=== PATIENT | male | born 1955 | race Caucasian/White ===

== ENCOUNTER → 2020-10-27 | Outpatient (CLI) | payer MEDICARE | LOC: LAB SHORT 14:02 → PLD 14:02 | DX: L08.9 Local infection of the skin and subcutaneous tissue, unspecified (principal); L57.8 Other skin changes due to chronic exposure to nonionizing radiation; R59.0 Localized enlarged lymph nodes; L81.4 Other melanin hyperpigmentation; D22.62 Melanocytic nevi of left upper limb, including shoulder; D22.5 Melanocytic nevi of trunk; L85.3 Xerosis cutis; D48.5 Neoplasm of uncertain behavior of skin; Z71.89 Other specified counseling | CPT/HCPCS: 87070; 87077; 87147; 87186; 87205 ==

== ENCOUNTER 2021-01-13 13:34 | Inpatient (IN) | payer MEDICARE ==
[~2021-01-13] VITALS: Ht 182.9 cm; Wt 101.7 kg
[2021-01-13 16:03] LABS: BASOPHILS ABSOLUTE AUTO 0.05 K/mm3 (0.00-0.23); BASOPHILS PERCENT AUTO 0 % (0-2); EOSINOPHILS ABSOLUTE AUTO 0.05 K/mm3 (0.00-0.68); EOSINOPHILS PERCENT AUTO 0 % (0-6); Hematocrit 38.6 % (37.0-53.0); Hemoglobin 12.1 g/dL (13.5-17.5); IMMATURE GRAN ABSOLUTE AUTO 0.52 K/mm3 (0.00-0.10); IMMATURE GRAN PERCENT AUTO 3 % (0-1); LYMPHOCYTES ABSOLUTE AUTO 0.55 K/mm3 (0.84-5.20); LYMPHOCYTES PERCENT AUTO 3 % (21-46); MONOCYTES ABSOLUTE AUTO 0.72 K/mm3 (0.16-1.47); MONOCYTES PERCENT AUTO 4 % (4-13); Mean Corpuscular HGB 27.8 pg (26.0-34.0); Mean Corpuscular HGB Conc 31.3 g/dL (31.5-36.5); Mean Corpuscular Volume 89 fL (80-100); Mean Platelet Volume 9.6 fL (9.1-12.4); NEUTROPHILS ABSOLUTE AUTO 15.76 K/mm3 (1.96-9.15); NEUTROPHILS PERCENT AUTO 89 % (41-73); NRBC ABSOLUTE 0.02 K/mm3 (0.00-0.02); NRBC Auto 0.1 /100 WBC (0.0-0.2); Platelet Count 202 K/mm3 (150-400); RDW Coefficient Variation 17.2 % (11.7-14.2); RDW Standard Deviation 55.4 fL (35.1-46.3); Red Blood Cell Count 4.35 M/mm3 (4.30-5.90); White Blood Cell Count 17.65 K/mm3 (4.00-11.30)
[2021-01-13 16:39] LABS: Alanine Aminotransfer (ALT/SGP 55 U/L (12-78); Albumin, Blood 2.3 g/dL (3.4-5.0); Albumin/Globulin Ratio 0.7 (0.8-1.8); Alk Phos 77 U/L (50-136); Anion Gap 5 mmol/L (6-16); Aspartate Aminotrans (AST/SGOT 55 U/L (12-37); Bilirubin, Total 0.8 mg/dL (0.1-1.0); Blood Urea Nitrogen 27 mg/dL (8-24); Bun/Creatinine Ratio 44.1 (12.0-20.0); CO2, Blood 26 mmol/L (21-32); Calcium, Blood 7.7 mg/dL (8.5-10.1); Chloride, Blood 104 mmol/L (98-108); Creatinine, Blood 0.61 mg/dL (0.60-1.20); Globulin, Blood 3.3 g/dL (2.2-4.0); Glomerular Filtration Rate >60 (60-); Glucose, Blood 133 mg/dL (70-99); Potassium, Blood 4.8 mmol/L (3.5-5.5); Sodium, Blood 135 mmol/L (136-145); Total Protein, Blood 5.6 g/dL (6.4-8.2); Troponin I <0.015 ng/mL (0.000-0.040)
[2021-01-13 17:28] LABS: SARS-Cov-2 (COVID-19) PCR, MMC NEGATIVE (NEGATIVE)
[2021-01-13] MEDS ORDERED: MAGNESIUM OXID500 MG PO ×2 (17:43→18:44)
[2021-01-13] MEDS ORDERED: ATOR20 (17:44)
[2021-01-13] MEDS ORDERED: DEXA4 PO (17:45)
[2021-01-13] MEDS ORDERED: LEVSOD75 PO (17:45)
[2021-01-13] MEDS ORDERED: Percocet 5-3251 EACH PO (17:46)
[2021-01-13] MEDS ORDERED: METO10 PO (17:47)
[2021-01-13] MEDS ORDERED: FENT200LOZ TD (17:48)
[2021-01-13] MEDS ORDERED: REGLAN10 M7 PO (18:35)
[2021-01-13] MEDS ORDERED: FENTANYL1 EA19 TOP (18:35)
[2021-01-13] MEDS ORDERED: OXYC5 PO (18:37)
[2021-01-13] MEDS ORDERED: DOCUZEN 8.6-501 EACH PO (18:38)
[2021-01-13] MEDS ORDERED: ATOR20 PO (18:44)
--- NOTE | 2021-01-13 20:48 | NUR ---
ADMIT NOTE HANDOFF RECEIVED FROM EXECUTIVE SECRETARY GREGG. PT ARRIVED TO FLOOR VIA GURMOOKIE. PT ORIENTED TO UNIT. CALL BUTTON WITHIN REACH
--- NOTE | 2021-01-14 03:56 | NUR ---
SHIFT SUMMARY ADMITTED THIS SHIFT FOR LEFT PLEURAL EFFUSION/SOB. DNR CODE. POSSIBLE PNEUMONIA. A CANCER PT, HE MAY HAVE HAD AN ALLERGIC REACTION TO HIS IMMUNOTHERAPY DRUG TX. LACTIC ACID ELEVATED @ 4. LR INFUSING @ 125 ML/HR. HE IS ON XARELTO. I HAVE CALLED THE CONSULT TO DR. HARRIS'S ANSWERING SERVICE. HX: MELANOMA W/METS TO SPINE - STAGE 4. HE WAS PREVIOUSLY ON HOSPICE, BUT WENT BACK TO CANCER TREATMENTS. NEW CT SCAN PERFORMED, RESULTS AVAILABLE. HE DESATURATED THIS SHIFT 85-87% O2 SAT. I DID PUT HIM ON 2 LPM O2 AND INFORM HOSPITALIST TO OBTAIN O2 ORDER.
[2021-01-14 06:15] LABS: Hemoglobin 11.3 g/dL (13.5-17.5); Mean Corpuscular HGB 27.8 pg (26.0-34.0); Mean Corpuscular HGB Conc 31.4 g/dL (31.5-36.5); Mean Corpuscular Volume 89 fL (80-100); Mean Platelet Volume 9.1 fL (9.1-12.4); Platelet Count 185 K/mm3 (150-400); RDW Coefficient Variation 17.3 % (11.7-14.2); RDW Standard Deviation 55.3 fL (35.1-46.3); Red Blood Cell Count 4.07 M/mm3 (4.30-5.90); White Blood Cell Count 19.31 K/mm3 (4.00-11.30)
[2021-01-14 06:37] LABS: Anion Gap 5 mmol/L (6-16); Blood Urea Nitrogen 19 mg/dL (8-24); Bun/Creatinine Ratio 32.4 (12.0-20.0); CO2, Blood 26 mmol/L (21-32); Calcium, Blood 7.2 mg/dL (8.5-10.1); Chloride, Blood 106 mmol/L (98-108); Creatinine, Blood 0.59 mg/dL (0.60-1.20); Glomerular Filtration Rate >60 (60-); Glucose, Blood 98 mg/dL (70-99); Potassium, Blood 4.1 mmol/L (3.5-5.5); Sodium, Blood 137 mmol/L (136-145); Thyroxine (T4) 6.5 ug/dL (4.5-12.1)
--- NOTE | 2021-01-14 13:53 | NUR ---
Spoke with Supply Chain Systems Manager Daniella prior to Pt visit and discussed case. Pt resting in bed upon arrival. Pt is A&OX4 and reports 3/10 pain in his abdomen and rib cage area. Pt appears dyspneic as evidenced by work of breathing with Pt confirming SOB. Pt reports significant anxiety due to SOB and due to his current condition. Pt confirms living at home with his son. Engaged in therapeutic conversation regarding goals of care. Discussed current plan of care including plan for Dr Purcell to consult. Pt confirms hospitalist discussed finding from CT. Discussed further with Pt and answered questions. Discussed options including continued plan to have Dr Purcell discuss treatment options and discussed considering hospice. Pt reports he has no plans to pursue anymore treatments and would like to go back home with hospice. Discussed comfort care during his hospital stay with Pt in agreement. Pt expresses appreciation of visit and reports no other concerns at this time. Spoke with Primary RN lAlyn and discussed case. Spoke with Dr Arias and discussed case. Place comfort care order and comfort care order set per V/O from Dr Arias. Discussed case with Supply Chain Systems Manager Daniella. Daniella reports conversation with [facility] and son. Pt can return home today with hospice. Palliative Care will remain available.
--- NOTE | 2021-01-14 14:37 | NUR ---
DISCHARGE PT WAS PLACED ON COMFORT CARE THIS AFTERNOON BUT HAS ALREADY BEEN RECEIVING HOSPICE CARE FROM [facility]. DR HAS DECIDED TO DISCHARGE THE PT SO HE CAN CONTINUE HIS COMFORT CARE AT HOME WITH HOSPICE IN PLACE. PT WAS DISCHARGED TODAY AT 1430. PT LEFT ON 4L O2 WITH TRANSPORT VIA WHEELCHAIR. PT WAS HAVING SOME AIR HUNGER AND WAS GIVEN A DOSE OF ROXINOL PRIOR TO DISCHARGE. PT WAS ALERT AND ORIENTED AT TIME OF DC. DISCHARGE PAPERWORK WAS COMPLETED, PT SIGNED HOWEVER DISCHARGE PLANNING EXPLAINED THAT BECAUSE HOSPICE IS ALREADY ESTABLISHED THERE WAS NO NEED TO SEND ANY WRITTEN SCRIPTS HOME OR TO PHARMACY.
== END 2021-01-14 14:41 | disposition hospice, home (50) | DRG 180 ==
LOC: ER 13:34 → MEDS 17:37 → ERHOLD 17:37 → MEDS 20:38 → ENPENDDIS 01-14 14:07 → MEDS 01-14 14:41
PROVIDERS: Emergency Medicine; ADMIT Internal Medicine
DX: C78.00 Secondary malignant neoplasm of unspecified lung (principal); J18.9 Pneumonia, unspecified organism; J96.01 Acute respiratory failure with hypoxia; C78.7 Secondary malignant neoplasm of liver and intrahepatic bile duct; C79.51 Secondary malignant neoplasm of bone; J90 Pleural effusion, not elsewhere classified; Z51.5 Encounter for palliative care; E03.9 Hypothyroidism, unspecified; Z66 Do not resuscitate; E78.5 Hyperlipidemia, unspecified; G89.29 Other chronic pain; M54.9 Dorsalgia, unspecified; C43.9 Malignant melanoma of skin, unspecified; T38.0X5A Adverse effect of glucocorticoids and synthetic analogues, initial encounter; D72.829 Elevated white blood cell count, unspecified; F43.9 Reaction to severe stress, unspecified; Z87.891 Personal history of nicotine dependence; Z88.0 Allergy status to penicillin; Z88.8 Allergy status to other drugs, medicaments and biological substances
CPT/HCPCS: 36415; 71045; 71260; 80048; 80053; 83605; 84145; 84436; 84484; 85025; 85027; 87040; 93005; 93010; 94640; 94760; 96365; 96366; 99285-25; A9270; J1956; J2920; J7120; Q9967; U0004